=== PATIENT | female | born 1980 ===

== ENCOUNTER 2021-08-07 03:07 | Emergency (ER) | payer MEDICAID, OTHER ==
[~2021-08-07] VITALS: Ht 160 cm; Wt 65.8 kg
[2021-08-07 05:22] VITALS: BP 108/70
[2021-08-07] MEDS ORDERED: cefTRIAXone SOD 1,000 MG VL IM ONE (05:30)
== END 2021-08-07 06:01 | disposition home or self-care (01) ==
LOC: ER 03:07
DX: K04.7 Periapical abscess without sinus (principal); K02.9 Dental caries, unspecified
CPT/HCPCS: 96372; 99283; J0696